=== PATIENT | female | born 1980 | race African-American/Black ===

== ENCOUNTER 2023-05-21 12:36 | Emergency (ER) | payer BC ==
[2023-05-21] MEDS ORDERED: Ketorolac Tromethamine 30 MG/ML VIAL ONE (13:54)
[2023-05-21] MEDS ORDERED: Acetaminophen 500 MG TAB ONE (13:54)
[2023-05-21] MEDS ORDERED: Dexamethasone 4 MG TAB ONE (13:54)
[2023-05-21 14:23] LABS: SARS-CoV-2 NAA Rapid Test DETECTED (NotDetected)
== END 2023-05-21 15:44 | disposition home or self-care (01) ==
LOC: EDSEX 12:36 → BURERS 12:36
DX: U07.1 COVID-19 (principal)
CPT/HCPCS: 71045; 96372; J1885; J8540

== ENCOUNTER 2023-06-29 08:22 | Emergency (ER) | payer BC ==
[2023-06-29 09:40] LABS: SARS-CoV-2 NAA Rapid Test Not Detected (NotDetected)
[2023-06-29] MEDS ORDERED: Dexamethasone 4 MG TAB ONE (09:49)
== END 2023-06-29 09:52 | disposition home or self-care (01) ==
LOC: BURERS 08:22
DX: B34.9 Viral infection, unspecified (principal); Z20.822 Contact with and (suspected) exposure to COVID-19; I10 Essential (primary) hypertension; E11.9 Type 2 diabetes mellitus without complications
CPT/HCPCS: 99283; J8540